=== PATIENT | male | born 1980 | race Caucasian/White ===

== ENCOUNTER 2022-10-15 07:06 | Emergency (ER) | payer SELFPAY ==
[2022-10-15 07:13] VITALS: BP 140/78; PULSE 68; RESP 16; TEMP 36.8; O2SAT 100
--- NOTE | 2022-10-15 07:24 | W.ED.GENAD ---
Discharge Plan Disposition Patient Disposition: Home Discharge Details Clinical Impression: CHI (closed head injury), AC joint pain Primary Care Provider: Jeramie Holguin ED Provider: King Jeffries Home Meds and New Rx's Prescriptions: No Action methadone 10 mg/5 mL Solution 100 mg PO DAILY Discharge Instructions Instructions: Head Injury (ED), Shoulder Pain (ED) Additional Instructions: Please apply some ice to the affected shoulder. Rest. You may take Tylenol or Motrin for the pain. Please follow your primary care doctor as needed. Medical Decision Making Medical Records Medical records narrative: X-ray of the left shoulder negative. CT scan of the head also negative. Patient diagnosed with grade 1 or 2 AC joints of her joint injury to the left. He may also have a mild concussion. Patient will be discharged with instructions below for headache. As far as his shoulder injury RICE Sign Out No HPI General Date/Time Provider Initiated Documentation: 10/15/22 07:24. HPI Narrative: 42 otherwise healthy man presents to the emergency room for evaluation secondary to fall that he sustained last evening in his truck. Actually the truck at work. He tripped over a ladder and fell onto his left shoulder striking the left side of his head at the pentecostal area. No loss of consciousness. No headache last night but headache this morning which she could attribute to having worked overnight. His major complaint is left shoulder pain. Pain is located to the anterior aspect. Pain is worse with motion. He did take some ibuprofen last evening which helped. 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 Mild left chest wall discomfort with no shortness of breath. Pain is better with ibuprofen and rest. Related Data Home Medications Medication Instructions Recorded Confirmed methadone 10 mg/5 mL oral solution 100 mg PO DAILY 10/15/22 10/15/22 Allergies Allergy/AdvReac Type Severity Reaction Status Date / Time codeine AdvReac Mild severe Unverified 10/15/22 07:16 nausea General Stated Complaint: Orthopedic ITALIA: 3 Review of Systems Narrative: Constitutional is been negative for fever chills, negative for malaise, negative for fatigue. Eyes: No visual changes, ENT: No facialtrauma Cardiovascular no shortness of breath with exertion, no palpitations, no lightheadedness Respiratory: No shortness of breath, no cough GI: No abdominal pain, no nausea, no vomiting MSK: see hpi Skin: No rash Neurological: mild headaches, no focal weakness, no paresthesias, no dizziness Psych: No anxiety, no depression Hematology/lymph: no easy bleeding, not on blood thinners PFSH All Active Problems (Updated 10/15/22 @ 08:51 by King Jeffries MD) CHI (closed head injury) (Acute) AC joint pain (Acute) Surgical History (Updated 08/23/18 @ 14:34 by [employer] [place]) Tonsillectomy and adenoidectomy Social History Smoking/Tobacco Use Status: Current every day Smoking risk assessment performed?: Yes Drug use: Occasionally Substance use type: marijuana Do you feel safe at home: Yes Do you feel safe in your relationship?: Yes Exam Narrative Exam Narrative: General: A,A Ox3, Calm, no apparent distress, well developed, pleasant and cooperative Head Size/Shape: normocephalic, atraumatic Eyes Pupils: PERRLA Extraocular Mobility: intact and symmetrical Conjunctiva: non-injected, anicteric, no discharge Ears, Nose, Throat Nares: patent bilaterally Oral Cavity: moist Neck: supple Respiratory Respiratory Effort: no dyspnea Auscultation: clear to auscultation bilaterally, normal breath sounds, no crepitus Cardiovascular Heart Auscultation: regular rate and rhythm, Pulse Quality: +2 equal bilaterally, location(s) radial Abdomen Inspection and Palpation: soft, non-tender, non-distended, no hepatosplenomegaly Musculoskeletal System Joints, Bones, and Muscles: mild setoff at the left Ac joint, pt tenderness- FROM Extremities: warm and well-perfused, no cyanosis, capillary refill <2 seconds Skin Skin Inspection: no rash, no lesions, no bruising Neurological Motor: normal tone, normal strength, moving all extremities equally Psychiatric: good insight, good judgement, normal mood and affect Course Vital Signs Vital signs: Vital Signs Temperature 36.8 C 10/15/22 07:13 Pulse 68 10/15/22 07:13 Respiratory Rate 16 10/15/22 07:13 Blood Pressure 140/78 10/15/22 07:13 Pulse Oximetry 100 10/15/22 07:13 Temperature 36.8 C 10/15/22 07:13 Temperature Source Oral 10/15/22 07:13 Pulse 68 10/15/22 07:13 Respiratory Rate 16 10/15/22 07:13 Respiratory Effort 10/15/22 07:21 Blood Pressure 140/78 10/15/22 07:13 Blood Pressure Position Sitting 10/15/22 07:13 Pulse Oximetry 100 10/15/22 07:13 Oxygen Delivery Method Room Air 10/15/22 07:13 Oxygen Flow Rate 0 10/15/22 07:13 Pain Level 6 10/15/22 07:13
--- NOTE | 2022-10-15 07:30 | DI.RAD_ITS ---
Exam(s) XR SHOULDER LT COMPLETE 2+V EXAM: XR SHOULDER LT COMPLETE 2+V CLINICAL HISTORY: fallpain. TECHNIQUE: 2D digital imaging was performed of the left shoulder. Five images were obtained. AP, G rashey, Y-view and axillary views were obtained. COMPARISON: No exams were available for comparison FINDINGS: BONES: No acute fracture is present. No bony destructive lesion is seen. JOINTS: No dislocation present. SOFT TISSUE: Normal. IMPRESSION: Unremarkable radiographs of the left shoulder. DATA REPOSITORY: RADIATION DOSE DELIVERED:
[2022-10-15] MEDS: Acetaminophen 500 MG TAB 1000 MG PO (07:41)
--- NOTE | 2022-10-15 07:56 | DI.CT_ITS ---
Exam(s) CT HEAD WO EXAM: CT HEAD WO CLINICAL HISTORY: fall trauma confusion. TECHNIQUE: Imaging Protocol: Axial computed tomography images with coronal and sagittal reformatted images were created and reviewed COMPARISON: No exams were available for comparison FINDINGS: Ventricles and Extra axial spaces: Normal in size and morphology for the patient's age. Hemorrhage: None. Cerebral parenchyma: Normal. Midline shift: None. Brainstem/Cerebellum: Normal. Calvarium: Normal. Visualized Paranasal sinuses/Mastoids: Clear. Soft Tissues: Unremarkable. IMPRESSION: 1. No acute intracranial process. 2. Findings were discussed with the emergency department at 8:34 a.m. on 10/15/2022. RADIATION DOSE DELIVERED: 811.25mGy.cm Total DLP DATA REPOSITORY: All CT scans at this facility are submitted to the National Radiology Data Registry (NRDR) Dose Index Registry (DIR) with the [employer] (ACR). RADIATION OPTIMIZATION: All CT scans at this facility use at least one of these dose optimization te chniques: automated exposure control; mA and/or kV adjustment per patient size (includes targeted exa ms where dose is matched to clinical indication); or iterative reconstruction.
[2022-10-15 08:58] VITALS: BP 123/86; PULSE 62; O2SAT 98
== END 2022-10-15 17:21 | disposition home or self-care (01) ==
PROVIDERS: Emergency Provider Emergency Medicine; PCP General Practice
DX: S09.90XA Unspecified injury of head, initial encounter (principal); G89.11 Acute pain due to trauma; M25.512 Pain in left shoulder; W11.XXXA Fall on and from ladder, initial encounter; Y92.812 Truck as the place of occurrence of the external cause; Y99.0 Civilian activity done for income or pay
CPT/HCPCS: 99284; 70450; 73030; 99282

== ENCOUNTER 2024-09-05 12:17 | Emergency (ER) | payer MEDICAID, SELFPAY ==
[2024-09-05 12:21] VITALS: BP 118/73; PULSE 77; RESP 15; TEMP 36.7; O2SAT 96
[2024-09-05 12:26] VITALS: BP 118/73; PULSE 77; RESP 15; TEMP 36.7; O2SAT 96
--- NOTE | 2024-09-05 13:15 | DI.RAD_ITS ---
Exam(s) XR CHEST 2V PA LATERAL EXAM: XR CHEST 2V PA LATERAL CLINICAL HISTORY: cough, pui TECHNIQUE: 2D digital imaging was performed. Two views. COMPARISON: CR ABD FLAT UPRIGHT PA CHEST from 08/06/2015 FINDINGS: HEART: Normal size. Aorta: Not dilated. PULMONARY VASCULATURE: Normal. MEDIASTINUM: Unremarkable. LUNGS: Small patchy infiltrate noted at the posterior left costophrenic angle. PLEURAL SPACE: No pleural effusion or pneumothorax. BONE:Unremarkable for age. SOFT TISSUES: Unremarkable. IMPRESSION: Left basilar infiltrate. DATA REPOSITORY: RADIATION DOSE DELIVERED:
--- NOTE | 2024-09-05 13:53 | ED.GENADUL_ITS ---
Discharge Plan Disposition Patient Disposition: Home Condition: Stable Discharge Details Clinical Impression: Pneumonia involving left lung Primary Care Provider: Jeramie Holguin ED Provider: Juliocesar Schreiber Home Meds and New Rx's Prescriptions: New amoxicillin-pot clavulanate 875-125 mg tablet 1 tab PO BID Qty: 10 0RF Continued methadone 10 mg/5 mL Solution 100 mg PO DAILY Discharge Instructions Instructions: Pneumonia, Adult ED Additional Instructions: Please take full course of antibiotic as prescribed. You were given the initial dose here in the emergency department. Your next dose is tonight. Rest at home and drink plenty of fluid. Allow for plenty of rest. Please contact your primary care physician to arrange follow-up. Return to the ER immediately for any worsening or new concerning symptoms. Stand Alone Forms: Work Release [facility] General Mode of arrival: ambulatory . Date/Time Provider Initiated Documentation: 09/05/24 12:30 . Limitations to Documentation: no limitations . Information obtained by: patient . HPI Narrative: 43yo male here with productive cough over the past 1 week. Patient has associated fever and bodyaches. Related Data Home Medications ?Medication ?Instructions ?Recorded ?Confirmed methadone 10 mg/5 mL oral solution 100 mg PO DAILY 10/15/22 09/05/24 amoxicillin 875 mg-potassium 1 tab PO BID #10 tabs 09/05/24 clavulanate 125 mg tablet Previous Rx's ?Medication ?Instructions ?Recorded amoxicillin 875 mg-potassium 1 tab PO BID #10 tabs 09/05/24 clavulanate 125 mg tablet Allergies Allergy/AdvReac Type Severity Reaction Status Date / Time codeine AdvReac Mild severe Unverified 09/05/24 12:28 nausea General Stated Complaint: RespSymp ITALIA: 3 Review of Systems All systems reviewed & are unremarkable except as noted in HPI and below Constitutional Constitutional: Reports fever(s) Respiratory Respiratory: Reports as per HPI Exam Const General: cooperative and no acute distress HENMT Mouth: moist mucous membranes Eyes Conjunctivae: normal conjunctivae Sclera: normal sclerae Neck Neck: trachea midline Resp Auscultation: rales on the left in the lower lung muniz, no rhonchi and no wheezes Cardio Rate: regular rate and not tachycardic Rhythm: regular rhythm GI Palpation: soft, not firm, no guarding, no masses, not rigid and nontender Skin General skin exam: no rashes or lesions noted Neuro General: patient alert, patient awake and tone normal Extrem General: no edema Course Vital Signs Vital signs: Vital Signs Temperature 36.7 C 09/05/24 12:21 Pulse 77 09/05/24 12:21 Respiratory Rate 15 09/05/24 12:21 Blood Pressure 118/73 09/05/24 12:21 Pulse Oximetry 96 09/05/24 12:21 Temperature 36.7 C 09/05/24 12:26 Pulse 77 09/05/24 12:26 Respiratory Rate 15 09/05/24 12:26 Respiratory Effort Normal 09/05/24 12:43 Respiratory Depth Normal 09/05/24 12:43 Blood Pressure 118/73 09/05/24 12:26 Blood Pressure Position Sitting 09/05/24 12:26 Pulse Oximetry 96 09/05/24 12:26 Oxygen Delivery Method Room Air 09/05/24 12: Oxygen Flow Rate 0 09/05/24 12:21 Medical Decision Making 44-year-old male here with productive cough over the past 1 week with associated fever and bodyaches. Patient does have some shortness of breath. He is saturating well on room air with no respiratory distress. On lung auscultation I do appreciate some Rales left lower lung. Concern for pneumonia. Consider COVID and influenza. Rapid COVID testing negative. Chest x-ray was reviewed and interpreted by radiology: Left basilar infiltrate concerning for pneumonia. Plan to initiate treatment with Augmentin. I will give initial dose here in the emergency department. Quality:SDOH Health Related Social Needs: No Data to Display PFSH All Active Problems Pneumonia involving left lung (Acute) Surgical History Tonsillectomy and adenoidectomy Social History Smoking/Tobacco Use Status: Current every day Smoking risk assessment performed?: Yes Drug use: Occasionally Substance use type: marijuana Do you feel safe at home: Yes Do you feel safe in your relationship?: Yes
[2024-09-05 14:01] LABS: COVID-19 PCR Negative (Negative); Influenza A PCR Negative (Negative); Influenza B PCR Negative (Negative); RSV PCR Negative (Negative)
[2024-09-05 14:02] LABS: Source Nasopharynx
[2024-09-05 14:11] VITALS: BP 132/74; PULSE 92; RESP 16; TEMP 36.5; O2SAT 99
[2024-09-05] MEDS: Amoxicillin 875/Clav. 125 TAB PO (14:11)
== END 2024-09-05 14:12 | disposition home or self-care (01) ==
LOC: ER 14:02
PROVIDERS: Emergency Provider Student in an Organized Health Care Education/Training Program; PCP General Practice
DX: J18.9 Pneumonia, unspecified organism (principal); R05.1 Acute cough; R52 Pain, unspecified
CPT/HCPCS: 87637; 99283; 71046

== ENCOUNTER 2025-01-29 07:38 | Emergency (ER) | payer MEDICAID, SELFPAY ==
[2025-01-29 07:41] VITALS: BP 145/91; PULSE 98; RESP 15; TEMP 37; O2SAT 97
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
[2025-01-29] MEDS: Acetaminophen 500 MG TAB 1000 MG PO (08:16)
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
[2025-01-29] MEDS: Lidocaine 5% Patch 1 PATCH TP (09:21)
[2025-01-29] MEDS: Ibuprofen 600 MG TAB PO (09:21)
[2025-01-29 09:26] VITALS: BP 106/64; PULSE 78; RESP 16; O2SAT 99
[2025-01-29 09:50] VITALS: BP 105/74; PULSE 75; RESP 18; O2SAT 100
== END 2025-01-29 09:50 | disposition home or self-care (01) ==
PROVIDERS: Emergency Provider Emergency Medicine; PCP General Practice
DX: M54.6 Pain in thoracic spine (principal); M54.50 Low back pain, unspecified; F11.20 Opioid dependence, uncomplicated
CPT/HCPCS: 76604; 76705; 76857; 99284; 70450; 72125; 72128; 72131

== ENCOUNTER 2025-03-03 08:50 | Emergency (ER) | payer MEDICAID, SELFPAY ==
--- NOTE | 2025-03-03 08:45 | DI.RAD_ITS ---
Exam(s) XR CHEST 2V PA LATERAL EXAM: XR CHEST 2V PA LATERAL CLINICAL HISTORY: cough TECHNIQUE: 2D digital imaging was performed of the chest. Two images were obtained. PA and lateral views were obtained. COMPARISON: CR CHEST 2 VIEWS PA,LAT from 04/21/2013 CR XR CHEST 2V PA LATERAL from 09/05/2024 FINDINGS: MEDIASTINUM: Normal. HEART: Normal. PULMONARY VASCULATURE: Normal. LUNGS: The lungs are hyperinflated. No focal consolidating infiltrates are present. PLEURAL SPACE: No pleural effusion or pneumothorax. BONE:Within normal limits for the patient's age. OTHER FINDINGS:Normal. IMPRESSION: No acute pulmonary findings. DATA REPOSITORY: RADIATION DOSE DELIVERED:
[2025-03-03 08:52] VITALS: BP 104/66; PULSE 61; RESP 15; TEMP 36.9; O2SAT 99
[2025-03-03 08:55] VITALS: BP 104/66; PULSE 61; RESP 15; TEMP 36.9; O2SAT 99
--- NOTE | 2025-03-03 09:03 | W.ED.GENAD ---
Discharge Plan Disposition Patient Disposition: Home Condition: Stable Discharge Details Clinical Impression: Upper respiratory infection, viral Primary Care Provider: None,None ED Provider: Jagruti Zheng Home Meds and New Rx's Prescriptions: No Action methadone 10 mg/5 mL Solution 90 mg PO DAILY Discharge Instructions Instructions: Cough, runny nose, and the common cold Additional Instructions: No evidence of pneumonia on the chest x-ray. Negative COVID flu and RSV. Please take [id number] medication such as DayQuil or similar. Increase multivitamin. Increase oral fluids. Please take Tylenol or Ibuprofen with food every 4-6 hours as needed for pain and bodyaches. You may gargle with warm salt water 3 times daily as needed for sore throat. Also raw honey will help with throat pain. Follow up with primary care provider in 3-5 days. Return to ED sooner if any worsening or concerns. Thank you for allowing us to care for you today. Referrals: Primary Care Provider [Outside] - 1 week HPI General Mode of arrival: ambulatory. Date/Time Provider Initiated Documentation: 03/03/25 08:54. Limitations to Documentation: no limitations. Information obtained by: patient, RN notes reviewed and old records reviewed. HPI Narrative: 44 yr old male with URI symptoms for approximately a week. Endorses sore throat cough body aches and productive cough with green sputum. He is a daily smoker. No wheezing auscultated on exam. He has had a tonsillectomy and adenoidectomy. No exudate noted in posterior oropharynx. Related Data Home Medications ?Medication ?Instructions ?Recorded ?Confirmed methadone 10 mg/5 mL oral solution 90 mg PO DAILY 10/15/22 03/03/25 Allergies Allergy/AdvReac Type Severity Reaction Status Date / Time codeine AdvReac Mild severe Unverified 03/03/25 08:56 nausea General Stated Complaint: RespSymp ITALIA: 4 Review of Systems All systems reviewed & are unremarkable except as noted in HPI and below ENT Ears, Nose, Mouth, and Throat: Reports as per HPI and Reports sore throat Respiratory Respiratory: Reports change in phlegm color, Reports chest congestion, Reports cough, Denies hemoptysis and Reports excessive phlegm production Exam Narrative Exam Narrative: Constitutional: Alert and oriented x3. Appears stated age. Normal body habitus. Head: Normocephalic, no trauma. Eyes: Pupils PERRL, Red reflex noted, EOM's intact. Eyelids symmetrical without lesions, discharge, or swelling. ENT: Bilateral TM's WNL, External ear normal to inspection, no mastoid TTP, swelling, or erythema, Nasal turbinates slightly boggy, no nasal discharge. Normal dentition, Posterior pharynx slightly erythemic no exudate. Chest: RRR, Normal S1, S2, distal pulses intact. Resp: Lungs clear to auscultation bilaterally, no wheezes, rales, or rhonchi. Congested cough noted Abdomen: Soft, non-distended, Normoactive bowel sounds all 4 quads. Musculoskeletal: Normal gait, Moves all 4 extremities without difficulty. Skin: No suspicious rashes or lesions. Capillary refill less than 2 sec. Course Vital Signs Vital signs: Vital Signs Temperature 36.9 C 03/03/25 08:52 Pulse 61 03/03/25 08:52 Respiratory Rate 15 03/03/25 08:52 Blood Pressure 104/66 03/03/25 08:52 Pulse Oximetry 99 03/03/25 08:52 Temperature 36.9 C 03/03/25 08:55 Temperature Source Oral 03/03/25 08:55 Pulse 61 03/03/25 08:55 Respiratory Rate 15 03/03/25 08:55 Respiratory Effort Normal 03/03/25 08:59 Respiratory Depth Normal 03/03/25 08:59 Blood Pressure 104/66 03/03/25 08:55 Blood Pressure Position Sitting 03/03/25 08:55 Pulse Oximetry 99 03/03/25 08:55 Oxygen Delivery Method Room Air 03/03/25 08:55 Oxygen Flow Rate 0 03/03/25 08:55 Pain Level 8 03/03/25 08:55 Medical Decision Making 44 yr old male with URI symptoms for approximately a week. Endorses sore throat cough body aches and productive cough with green sputum. He is a daily smoker. No wheezing auscultated on exam. He has had a tonsillectomy and adenoidectomy. No exudate noted in posterior oropharynx. Rapid flu and COVID swab ordered, chest x-ray and ibuprofen p.o. No evidence of pneumonia on the chest x-ray negative for COVID flu RSV. Will discuss symptomatic treatment at home increase oral fluids. Most likely viral URI. Patient discharged with home care symptomatic treatment and [id number] remedies. This text was generated using [employer] system, please disregard any oddities of phrase or misspellings. Quality:SDOH Health Related Social Needs: Health related social needs housing instability, housed, with risk of homelessness (Z59.811), food insecurity (Z59.41), problems related to housing/economic circumstances (Z59.89), feeling lonely/isolated (Z60.8) PFSH All Active Problems (Updated 03/03/25 @ 09:35 by Jagruti Zheng NP) Upper respiratory infection, viral (Acute) Surgical History Tonsillectomy and adenoidectomy Social History Smoking/Tobacco Use Status: Current every day Smoking risk assessment performed?: Yes Alcohol Intake: current Alcohol Intake frequency: holidays/special occasions only Alcohol type: hard liquor Drug use: Occasionally Substance use type: marijuana Do you feel safe at home: Yes Do you feel safe in your relationship?: Yes
[2025-03-03] MEDS: Ibuprofen 600 MG TAB PO (09:12)
== END 2025-03-03 09:51 | disposition home or self-care (01) ==
PROVIDERS: Emergency Provider Registered Nurse Emergency
DX: J06.9 Acute upper respiratory infection, unspecified (principal); Z59.811 Housing instability, housed, with risk of homelessness; Z59.41 Food insecurity; Z60.8 Other problems related to social environment; F17.210 Nicotine dependence, cigarettes, uncomplicated
CPT/HCPCS: 99283; 99284; 71046